=== PATIENT | male | born 1960 | race Caucasian/White ===

== ENCOUNTER 2022-02-20 11:12 | Day surgery (SDC) | payer MEDICAID ==
[~2022-02-20] VITALS: Ht 172.7 cm; Wt 59.7 kg
[2022-02-20 11:45] VITALS: BP 166/91
[2022-02-20] MEDS ORDERED: normal saline 1000ml 1,000 ML IV SCH (11:45)
[2022-02-20] MEDS ORDERED: heparin sodium, porcine/PF 100unit/ml 5ML syringe ONE (11:54)
[2022-02-20] MEDS ORDERED: midazolam 1 mg/ML 2ml injection ONE (11:54)
[2022-02-20] MEDS ORDERED: fentaNYL/PF 50MCG/1 ML 2ML syringe ONE (11:54)
[2022-02-20] MEDS ORDERED: LIDOCAINE 1% w/preservative (10 MG/ML) inj. 10mL VIAL ONE (11:54)
[2022-02-20] MEDS ORDERED: HYDR-3973 PO (11:58)
[2022-02-20 12:46] VITALS: BP 148/100
[2022-02-20 13:00] VITALS: BP 146/105
[2022-02-20 13:33] VITALS: BP 149/104
[2022-02-20 13:45] VITALS: BP 166/91
== END 2022-02-20 13:45 | disposition home or self-care (01) ==
LOC: SSTAY O 11:12
PROVIDERS: ATTEND Radiology Vascular & Interventional Radiology
DX: C67.8 Malignant neoplasm of overlapping sites of bladder (principal); Z20.822 Contact with and (suspected) exposure to COVID-19; Z79.899 Other long term (current) drug therapy
CPT/HCPCS: 36561; 76937; 77001; 87635; 99152; 99153; C1769; C1788; C1894; C9803; J1642; J2250; J3010

== ENCOUNTER 2022-10-15 17:58 | Emergency (ER) | payer MEDICAID ==
[~2022-10-15] VITALS: Ht 170.2 cm; Wt 98.8 kg
[~2022-10-15 17:58] MED LIST: HYDR-3973 PO
[2022-10-15 18:45] VITALS: BP 134/92
[2022-10-15] MEDS ORDERED: LIDOcaine 2% 10ml TOPICAL JELLY (Urojet) TP ONE (19:30)
[2022-10-15] MEDS ORDERED: ondansetron 4mg rapidly disintigrating tab PO ONE (20:00)
[2022-10-15] MEDS ORDERED: morphine 4 MG/ML inj SYRINge IM ONE (20:00)
[2022-10-15] MEDS ORDERED: LIDOcaine 2% 10ml TOPICAL JELLY (Urojet) MM ONE (20:45)
== END 2022-10-15 21:15 | disposition home or self-care (01) ==
LOC: ER 17:59
DX: T83.098A Other mechanical complication of other urinary catheter, initial encounter (principal); R33.9 Retention of urine, unspecified
CPT/HCPCS: 51702; 96372; 99284; J2270; 99283; A4340; A4358